=== PATIENT | female | born 1960 | race Caucasian/White ===

== ENCOUNTER 2018-01-26 17:05 | Emergency (ER) | payer MEDICAID ==
[~2018-01-26] VITALS: Ht 160 cm; Wt 85.3 kg
[2018-01-26 17:15] VITALS: BP_SYST 122
--- NOTE | 2018-01-26 17:15 | NUR ---
Patient to ER bed 5 to gown for evaluation. Side rails up. Report given to JOLIE VERGARA.
--- NOTE | 2018-01-26 17:20 | NUR ---
Patient to ER via triage with c/o head pain s/p non-syncopal fall yesterday, no LOC reported. Patient denies neck or back pain. Patient also reports previous non-syncopal fall last week. Patient is awake, alert and oriented in no acute distress, vital signs stable, respirations even and unlabored, skin warm and dry to touch. Patient able to ambulate to room 5 without difficulty with slow, steady gait. Awaiting evaluation by ER MD/COMMUNITY HEALTH EDUCATION COORDINATOR, will continue to observe and assess.
--- NOTE | 2018-01-26 17:25 | NUR ---
[employer] at bedside to evaluate patient.
[2018-01-26] MEDS ORDERED: ONDANSETRON 4 MG ODT TAB PO ONE (17:30)
[2018-01-26] MEDS ORDERED: ACETAMINOPHEN 500 MG TABLET PO ONE (17:30)
[2018-01-26] MEDS ORDERED: ACETAMINOPHEN 500 MG TABLET ONE (17:40)
[2018-01-26] MEDS ORDERED: ONDANSETRON 4 MG ODT TAB ONE (17:41)
--- NOTE | 2018-01-26 18:00 | NUR ---
Patient to radiology department for films via wheelchair in stable condition.
--- NOTE | 2018-01-26 18:15 | NUR ---
Patient returned from radiology in stable condition via wheelchair.
[2018-01-26 18:40] VITALS: BP_SYST 120
--- NOTE | 2018-01-26 18:40 | NUR ---
Patient given written and verbal discharge instructions and verbalizes understanding. ER MD discussed with patient the results and treatment provided. Patient in stable condition. ID arm band removed. IV catheter removed intact and dressing applied, no active bleeding. Rx of Zofran ODT, Tylenol Extra Strength given. Patient educated on pain management and to follow up with PMD. Pain Scale 2. Opportunity for questions provided and answered. Medication side effect fact sheet provided. Patient left ER ambulating without difficulty with slow, steady gait in no acute distress with out of school hours care worker at her side. No adverse reaction noted to medication. No questions related to aftercare.
== END 2018-01-26 18:40 | disposition home or self-care (01) ==
LOC: SED 17:05
DX: S09.90XA Unspecified injury of head, initial encounter (principal); M54.2 Cervicalgia; R03.0 Elevated blood-pressure reading, without diagnosis of hypertension; E11.9 Type 2 diabetes mellitus without complications; K74.60 Unspecified cirrhosis of liver; Z85.41 Personal history of malignant neoplasm of cervix uteri; Z90.710 Acquired absence of both cervix and uterus; W18.30XA Fall on same level, unspecified, initial encounter; Y93.89 Activity, other specified; Y92.89 Other specified places as the place of occurrence of the external cause; Y99.8 Other external cause status
CPT/HCPCS: 70450; 72125; 99284; Q0162

== ENCOUNTER 2018-02-11 17:19 | Emergency (ER) | payer MEDICAID ==
[~2018-02-11] VITALS: Ht 160 cm; Wt 89.8 kg
[2018-02-11 17:24] VITALS: BP_SYST 145
[2018-02-11 17:55] LABS: BASOPHILS # (AUTO) 0.2 K/uL (0.0-0.2); BASOPHILS % (AUTO) 1.9 % (0.0-2.0); EOSINOPHILS # (AUTO) 0.1 K/uL (0.0-0.4); EOSINOPHILS % (AUTO) 0.7 % (0.0-4.0); HEMOGLOBIN 12.3 g/dL (12.0-16.0); LYMPHOCYTES % (AUTO) 11.8 % (20.5-51.5); MEAN CORPUSCULAR HEMOGLOBIN 25 pg (27-31); MEAN CORPUSCULAR HGB CONC 32 % (32-36); MEAN CORPUSCULAR VOLUME 76 fL (79.0-98.0); MONOCYTES # (AUTO) 0.3 K/uL (0.0-1.0); MONOCYTES % (AUTO) 3.8 % (1.7-9.3); NEUTROPHILS % (AUTO) 81.8 % (40.0-70.0); PLATELET COUNT (AUTO) 220 K/uL (130-430); RED BLOOD CELL COUNT(AUTO) 4.99 MIL/uL (4.2-6.2); RED CELL DISTRIBUTION WIDTH 15.2 % (9.0-15.0); WHITE BLOOD COUNT (AUTO) 8.6 K/uL (4.8-10.8)
[2018-02-11 18:08] LABS: BILIRUBIN,URINE NEGATIVE (NEGATIVE); BLOOD, URINE NEGATIVE (NEGATIVE); CLARITY/URINE SL HAZY (CLEAR); COLOR,URINE YELLOW (YELLOW); GLUCOSE,URINE 3+ (NEGATIVE); KETONES,URINE TRACE (NEGATIVE); LEUKOCYTE ESTERASE ,URINE NEGATIVE (NEGATIVE); NITRITE, URINE POSITIVE (NEGATIVE); PROTEIN URINE NEGATIVE (NEGATIVE); UROBILINOGEN,URINE 0.2 (0.2-1.0)
[2018-02-11] MEDS ORDERED: ONDANSETRON 4 MG ODT TAB PO ONE (18:15)
[2018-02-11] MEDS ORDERED: MORPHINE SULFATE 10 MG/ML VIAL IM ONE (18:15)
[2018-02-11 18:16] LABS: ACETONE, SERUM NEGATIVE (NEGATIVE)
[2018-02-11 18:21] LABS: BACTERIA,URINE MANY /HPF (None Seen); FINE GRANULAR CASTS,URINE 0-10 /LPF (None Seen); MUCUS,URINE 1+ /LPF (None Seen); RBC,URINE NONE SEEN /HPF (0-3)
[2018-02-11] MEDS ORDERED: cefTRIAXone 1 GM VIAL IM ONE (18:45)
[2018-02-11 18:48] LABS: ANION GAP 9 (5-15); CALCIUM 8.7 mg/dL (8.4-11.0); CHLORIDE 104 mmol/L (98-107); GLUCOSE 362 mg/dL (70-99); POTASSIUM 4.5 mmol/L (3.5-5.1); SODIUM SERUM 138 mmol/L (136-145)
[2018-02-11 18:49] LABS: CREATININE 0.89 mg/dL (0.55-1.30)
[2018-02-11 18:50] LABS: ALANINE AMINOTRANSFERASE 28 U/L (12-78); ALBUMIN 3.1 g/dL (3.4-4.8); AMYLASE 47 U/L (0-100); ASPARTATE AMINOTRANSFERASE 20 U/L (10-37); GFR AFRICAN AMERICAN 84 mL/min (>90); TOTAL BILIRUBIN 0.2 mg/dL (0.0-1.0)
[2018-02-11 18:51] LABS: LIPASE 200 U/L (73-393)
[2018-02-11 19:00] LABS: UREA NITROGEN, BLOOD 19 mg/dL (8-21)
[2018-02-11] MEDS ORDERED: INSULIN REGULAR, HUMAN 10 UNITS/0.1 ML INJ SUBCUT ONE (19:00)
[2018-02-11 19:55] VITALS: BP_SYST 133
== END 2018-02-11 19:55 | disposition home or self-care (01) ==
LOC: SED 17:19
DX: S30.0XXA Contusion of lower back and pelvis, initial encounter (principal); N39.0 Urinary tract infection, site not specified; E11.65 Type 2 diabetes mellitus with hyperglycemia; E07.9 Disorder of thyroid, unspecified; K74.60 Unspecified cirrhosis of liver; Z88.6 Allergy status to analgesic agent; W10.8XXA Fall (on) (from) other stairs and steps, initial encounter; Y93.89 Activity, other specified; Y92.89 Other specified places as the place of occurrence of the external cause; Y99.8 Other external cause status
CPT/HCPCS: 36415; 72192; 80053; 81000; 81025; 82009; 82150; 83690; 85025; 87086; 96372; 99285; J0696; J2270; Q0162; 87186-TC; J1815

== ENCOUNTER 2018-06-08 17:22 | Emergency (ER) | payer MEDICAID ==
[~2018-06-08] VITALS: Ht 160 cm; Wt 86.2 kg
[2018-06-08 17:22] VITALS: BP_SYST 115
[2018-06-08 20:25] VITALS: BP_SYST 116
== END 2018-06-08 20:25 | disposition home or self-care (01) ==
LOC: SED 17:22
DX: L81.9 Disorder of pigmentation, unspecified (principal); E11.9 Type 2 diabetes mellitus without complications; M79.7 Fibromyalgia; M06.9 Rheumatoid arthritis, unspecified; Z90.49 Acquired absence of other specified parts of digestive tract; Z90.710 Acquired absence of both cervix and uterus; Z98.890 Other specified postprocedural states
CPT/HCPCS: 82962; 99282

== ENCOUNTER 2018-10-21 12:22 | Emergency (ER) | payer MEDICAID ==
[~2018-10-21] VITALS: Ht 160 cm; Wt 83.5 kg
[2018-10-21 12:33] VITALS: BP_SYST 157
--- NOTE | 2018-10-21 13:31 | NUR ---
MSE performed by myself.
[2018-10-21] MEDS ORDERED: KETOROLAC TROMETHAMINE 60 MG/2 ML VIAL IM ONE ×2 (14:00→16:56)
--- NOTE | 2018-10-21 16:30 | NUR ---
Patient to ER bed H1 to gown for evaluation. Side rails up.
--- NOTE | 2018-10-21 16:30 | NUR ---
patient aox4 from home with c/o right shoulder pain 9/10 for the past 3 days. patient denies numbness, tingling. patient has full ROM, rotation and extremity has wnl caprefill to all fingers. no other complaint or injury otherwise stated at this time.
[2018-10-21 17:00] VITALS: BP_SYST 140
--- NOTE | 2018-10-21 17:00 | NUR ---
Patient given written and verbal discharge instructions and verbalizes understanding. ER MD discussed with patient the results and treatment provided. Patient in stable condition. ID arm band removed. Rx of motrin and tramadol given. Patient educated on pain management and to follow up with PMD. Pain Scale 3/10. Opportunity for questions provided and answered. Medication side effect fact sheet provided.
== END 2018-10-21 17:00 | disposition home or self-care (01) ==
LOC: SED 12:22
DX: S22.41XA Multiple fractures of ribs, right side, initial encounter for closed fracture (principal); S46.911A Strain of unspecified muscle, fascia and tendon at shoulder and upper arm level, right arm, initial encounter; R03.0 Elevated blood-pressure reading, without diagnosis of hypertension; E11.9 Type 2 diabetes mellitus without complications; M79.7 Fibromyalgia; Z90.49 Acquired absence of other specified parts of digestive tract; Z90.710 Acquired absence of both cervix and uterus; Z98.51 Tubal ligation status; Z88.5 Allergy status to narcotic agent; Z88.8 Allergy status to other drugs, medicaments and biological substances; Z85.41 Personal history of malignant neoplasm of cervix uteri; W19.XXXA Unspecified fall, initial encounter; Y93.89 Activity, other specified; Y92.89 Other specified places as the place of occurrence of the external cause; Y99.8 Other external cause status
CPT/HCPCS: 71100; 73030; 96372; 99283; J1885